=== PATIENT | female | born 1940 | race Caucasian/White ===

== ENCOUNTER 2017-02-20 10:47 | Outpatient (CLI) | payer MEDICARE, OTHER ==
--- NOTE | 2017-02-20 22:49 | RAD ---
ABDOMEN TWO VIEWS: 02/20/17 Supine and erect films show no free air beneath the diaphragm. Gas is present in large and small bow el, but the loops are not organized or greatly distended. The overall pattern is nonspecific. A mode rate amount of fecal material is seen in the colon. An ovoid calcification in the left lower quadran t is most likely vascular in nature. IMPRESSION: Mild constipation and nonspecific abdominal findings otherwise. POS: HOME
== END 2017-02-20 10:48 | disposition home or self-care (01) ==
LOC: BURRAD 10:47
PROVIDERS: ATTEND Family Medicine
DX: R10.30 Lower abdominal pain, unspecified (principal); K59.00 Constipation, unspecified
CPT/HCPCS: 74020

== ENCOUNTER 2018-06-17 10:52 | Outpatient (CLI) | payer MEDICARE, OTHER ==
--- NOTE | 2018-06-17 22:03 | RAD ---
LEFT ELBOW FOUR VIEWS: 06/17/18 An ununited fracture of the radial neck is present. There is slight lateral displacement of the radia l head. The articular surface of the head itself is smooth and seemingly unaffected. No current joint effusion was indicated. IMPRESSION: Old ununited fracture of the radial neck. POS: HOME
--- NOTE | 2018-06-17 22:05 | RAD ---
LEFT HIP TWO VIEWS: 06/17/18 Comparison is made with intraoperative films dated 01/16/18. A prior ORIF of a fracture at the base of the femoral neck is noted. There is no sign of loosening or infection around the hardware. No acute fracture was seen. The articular surface of the femoral head is smooth and the joint space is normal. The adjacent pubic ring appears intact. IMPRESSION: No acute bony findings. POS: HOME
== END 2018-06-17 10:53 | disposition home or self-care (01) ==
LOC: BURRAD 10:52
PROVIDERS: ATTEND Family Medicine
DX: M25.522 Pain in left elbow (principal); M25.552 Pain in left hip